=== PATIENT | female | born 1960 | race Caucasian/White ===

== ENCOUNTER 2024-11-29 23:27 | Emergency (ER) | payer MEDICARE, OTHER ==
[~2024-11-29] VITALS: Ht 157.5 cm; Wt 62.6 kg
[2024-11-30] MEDS ORDERED: METF-494 PO (00:01)
[2024-11-30] MEDS ORDERED: GABA300C PO (00:13)
[2024-11-30] MEDS ORDERED: ONDA4TAB5 PO (00:18)
[2024-11-30] MEDS ORDERED: TDAP DIPH,PERTUSS,TET VAC/PF 0.5 ML DISP.SYRIN IM ONE (01:00)
[2024-11-30] MEDS: TDAP DIPH,PERTUSS,TET VAC/PF 0.5 ML DISP.SYRIN IM ONE (01:11)
[2024-11-30 04:31] VITALS: BP 110/68; TEMP 98.4; O2SAT 96
== END 2024-11-30 04:09 | disposition home or self-care (01) ==
LOC: ER 23:27
DX: S00.01XA Abrasion of scalp, initial encounter (principal); Z79.84 Long term (current) use of oral hypoglycemic drugs; W18.39XA Other fall on same level, initial encounter; Y93.89 Activity, other specified; Y92.89 Other specified places as the place of occurrence of the external cause; Y99.8 Other external cause status
CPT/HCPCS: 70450; 90715; A4606; A4663